=== PATIENT | male | born 1975 | race Caucasian/White ===

== ENCOUNTER 2019-12-13 16:21 | Outpatient (CLI) | payer OTHER ==
--- NOTE | 2019-12-13 16:53 | RAD ---
LEFT WRIST: 12/13/19 Three views. HISTORY: Injury with pain. Carpals appear normally aligned and appear intact. The distal radius and ulna appear intact. The visu alized metacarpals appear intact. IMPRESSION: No acute findings. POS: [facility]
== END 2019-12-13 16:22 | disposition home or self-care (01) ==
LOC: SCSRAD 16:21
PROVIDERS: ATTEND Family Medicine
DX: S69.92XA Unspecified injury of left wrist, hand and finger(s), initial encounter (principal)